=== PATIENT | male | born 1950 | race Caucasian/White ===

== ENCOUNTER 2018-06-29 17:43 | Emergency (ER) | payer OTHER, MEDICAID ==
[~2018-06-29] VITALS: Ht 170.2 cm; Wt 70.0 kg
[2018-06-29 17:45] VITALS: BP 133/82
[2018-06-29] MEDS ORDERED: INSULIN (17:48)
== END 2018-06-29 19:06 | disposition left against medical advice (07) ==
LOC: ER 17:54
DX: Z53.21 Procedure and treatment not carried out due to patient leaving prior to being seen by health care provider (principal)